=== PATIENT | female | born 1985 | race Caucasian/White ===

== ENCOUNTER 2021-04-27 00:52 | Emergency (ER) | payer MEDICAID, OTHER ==
[~2021-04-27] VITALS: Ht 160 cm; Wt 104.3 kg
[2021-04-27 01:01] VITALS: BP 149/97
[2021-04-27] MEDS ORDERED: IBUPROFEN 600 MG TABLET PO ONE (01:30)
[2021-04-27] MEDS ORDERED: IBUPROFEN 600 MG TABLET ONE (01:43)
[2021-04-27] MEDS ORDERED: HYDR-4303 PO (02:05)
[2021-04-27] MEDS ORDERED: IBUP-1955 PO (02:05)
--- NOTE | 2021-04-27 02:17 | NUR ---
EMT AT BED SIDE TO APPLY SPLINT
== END 2021-04-27 03:09 | disposition home or self-care (01) ==
LOC: ER 00:56
DX: S82.61XA Displaced fracture of lateral malleolus of right fibula, initial encounter for closed fracture (principal); R60.9 Edema, unspecified; J45.909 Unspecified asthma, uncomplicated; Z88.8 Allergy status to other drugs, medicaments and biological substances; V00.841A Fall from standing electric scooter, initial encounter; Y93.89 Activity, other specified; Y92.89 Other specified places as the place of occurrence of the external cause; Y99.8 Other external cause status
CPT/HCPCS: 73610-TC; 73630-TC

== ENCOUNTER 2021-10-06 19:23 | Emergency (ER) | payer MEDICAID, OTHER ==
[~2021-10-06] VITALS: Ht 160 cm; Wt 136.1 kg
[~2021-10-06 19:23] MED LIST: HYDR-4303 PO; IBUP-1955 PO
--- NOTE | 2021-10-06 21:08 | NUR ---
BIBSELF C/O LEFT ARM PAIN, WEAKNESS, BLE SWELLING, HEART Palpitations. AMBULATORY, PLACED ON BED, [id number].
--- NOTE | 2021-10-06 21:36 | NUR ---
20G IV LINE ESTABLSIHED AT [facility]. PATENT AND INTACT. UNABLE TO DRAW BLOOD FROM IV ASITE. LOGGING [employer]W SUPERVISOR AT BEDSIDE FOR BLOOD DRAW.
--- NOTE | 2021-10-06 21:43 | NUR ---
URINE COLLECTED AND SENT TO LAB
[2021-10-06 22:15] LABS: BASOPHILS % (AUTO) 0.5 % (0.0-2.0); EOSINOPHILS % (AUTO) 1.5 % (0.0-6.0); HEMATOCRIT 41 % (33-45); HEMOGLOBIN 13.5 g/dL (11.5-14.8); LYMPHOCYTES # (AUTO) 2.5 K/uL (0.8-4.8); LYMPHOCYTES % (AUTO) 24.5 % (20.0-44.0); MEAN CORPUSCULAR HGB CONC 33 g/dl (31.0-36.0); MEAN CORPUSCULAR VOLUME 87 fL (82-100); MONOCYTES # (AUTO) 0.4 K/uL (0.1-1.30); NEUTROPHILS # (AUTO) 7.1 K/uL (1.8-8.9); NEUTROPHILS % (AUTO) 69.5 % (43.0-81.0); PLATELET COUNT (AUTO) 234 K/uL (150-450); WHITE BLOOD COUNT (AUTO) 10.2 K/uL (4.3-11.0)
[2021-10-06 22:33] LABS: CARBON DIOXIDE 29 mmol/L (21-32); CHLORIDE 102 mmol/L (98-107); CREATININE 0.7 mg/dL (0.6-1.3); GLUCOSE 82 mg/dL (74-106); POTASSIUM 3.9 mmol/L (3.5-5.1); SODIUM SERUM 139 mmol/L (136-145); UREA NITROGEN, BLOOD 15 mg/dL (7-18)
[2021-10-06 22:38] LABS: ALANINE AMINOTRANSFERASE 24 U/L (12-78); ALBUMIN 3.4 g/dL (3.4-5.0); ALKALINE PHOSPHATASE 74 U/L (46-116); ASPARTATE AMINOTRANSFERASE 18 U/L (15-37); BILIRUBIN,TOTAL 0.1 mg/dL (0.2-1.0); TOTAL PROTEIN, SERUM 7.3 g/dL (6.4-8.2)
[2021-10-06 22:56] LABS: BILIRUBIN,URINE NEGATIVE (NEGATIVE); COLOR,URINE YELLOW (YELLOW); LEUKOCYTE ESTERASE ,URINE NEGATIVE (NEGATIVE); NITRITE, URINE NEGATIVE (NEGATIVE); PROTEIN,URINE NEGATIVE (NEGATIVE); UGLUCOSE NEGATIVE (NEGATIVE); UROBILINOGEN,URINE 0.2 EU/dL (0.2)
[2021-10-06] MEDS ORDERED: NITR100C PO (23:07)
--- NOTE | 2021-10-07 01:23 | NUR ---
Patient discharged to home in stable condition. Written and verbal after care instructions given. Patient verbalizes understanding of instruction. IV line removed and PT ambulatory with steady gait.
[2021-10-07 02:05] VITALS: BP 159/90
== END 2021-10-07 01:23 | disposition home or self-care (01) ==
LOC: ER 19:27
DX: R53.1 Weakness (principal); E66.01 Morbid (severe) obesity due to excess calories; Z68.43 Body mass index [BMI] 50.0-59.9, adult; R60.0 Localized edema; N39.0 Urinary tract infection, site not specified; Z72.0 Tobacco use; I87.2 Venous insufficiency (chronic) (peripheral); R00.2 Palpitations; Z20.822 Contact with and (suspected) exposure to COVID-19; F15.90 Other stimulant use, unspecified, uncomplicated; J45.909 Unspecified asthma, uncomplicated; F17.210 Nicotine dependence, cigarettes, uncomplicated; R03.0 Elevated blood-pressure reading, without diagnosis of hypertension; M79.602 Pain in left arm
CPT/HCPCS: 36415 ×2; 71045; 80048; 80076; 81003; 83880; 84484 ×2; 84703; 85025; 87426; 93005; 99285; 99406; C9803

== ENCOUNTER 2024-05-28 13:25 | Emergency (ER) | payer BC, MEDICAID, OTHER ==
[~2024-05-28] VITALS: Ht 175.3 cm; Wt 130.6 kg
[~2024-05-28 13:25] MED LIST changes: +NITR100C PO
[2024-05-28] MEDS ORDERED: MAG HYDROX/AL HYDROX/SIMETH 30 ML UDC ONE (14:54)
[2024-05-28] MEDS ORDERED: ACETAMINOPHEN ES 500 MG TABLET ONE (14:54)
[2024-05-28 14:55] LABS: BASOPHILS % (AUTO) 0.1 % (0.0-2.0); EOSINOPHILS % (AUTO) 0.4 % (0.0-6.0); HEMATOCRIT 42 % (33-45); HEMOGLOBIN 14.1 g/dL (11.5-14.8); LYMPHOCYTES # (AUTO) 0.4 K/uL (0.8-4.8); LYMPHOCYTES % (AUTO) 3.5 % (20.0-44.0); MEAN CORPUSCULAR HEMOGLOBIN 30 PG (26.0-33.0); MEAN CORPUSCULAR HGB CONC 33 g/dl (31.0-36.0); MEAN CORPUSCULAR VOLUME 89 fL (82-100); MONOCYTES # (AUTO) 0.2 K/uL (0.1-1.30); MONOCYTES % (AUTO) 2.2 % (2.0-12.0); NEUTROPHILS # (AUTO) 9.8 K/uL (1.8-8.9); NEUTROPHILS % (AUTO) 93.8 % (43.0-81.0); PLATELET COUNT (AUTO) 241 K/uL (150-450); RED BLOOD CELL COUNT(AUTO) 4.75 MIL/uL (4.0-5.2); RED CELL DISTRIBUTION WIDTH 15.2 % (11.5-15.0); WHITE BLOOD COUNT (AUTO) 10.5 K/uL (4.3-11.0)
[2024-05-28] MEDS ORDERED: ONDANSETRON 4 MG TAB.RAPDIS ONE (14:55)
[2024-05-28] MEDS ORDERED: FAMOTIDINE (20 MG) 20 MG TABLET ONE (14:55)
[2024-05-28] MEDS: FAMOTIDINE (20 MG) 20 MG TABLET PO ONE (14:56)
[2024-05-28] MEDS: MAG HYDROX/AL HYDROX/SIMETH 30 ML UDC PO ONE (14:56)
[2024-05-28] MEDS: ACETAMINOPHEN ES 500 MG TABLET PO ONE (14:57)
[2024-05-28] MEDS: ONDANSETRON 4 MG TAB.RAPDIS PO ONE (14:58)
[2024-05-28 15:06] LABS: CALCIUM, SERUM 8.4 mg/dL (8.5-10.1); POTASSIUM 4.2 mmol/L (3.5-5.1)
[2024-05-28 15:12] LABS: ALBUMIN 3.7 g/dL (3.4-5.0); BILIRUBIN,DIRECT 0.1 mg/dL (0.0-0.2); BILIRUBIN,TOTAL 0.4 mg/dL (0.2-1.0); TOTAL PROTEIN, SERUM 7.8 g/dL (6.4-8.2)
[2024-05-28] MEDS: IV NS 0.9% 1,000 ML BAG IV ONE (16:12)
[2024-05-28 17:00] LABS: APPEARANCE,URINE Clear (CLEAR); BILIRUBIN,URINE Negative (NEGATIVE); BLOOD, URINE Negative Ery/uL (NEGATIVE); COLOR,URINE YELLOW (YELLOW); KETONES,URINE Negative (NEGATIVE); LEUKOCYTE ESTERASE ,URINE Negative (NEGATIVE); NITRITE, URINE Negative (NEGATIVE); PROTEIN,URINE Negative (NEGATIVE); UGLUCOSE Negative (NEGATIVE)
[2024-05-28 17:01] LABS: PREGNANCY TEST URINE QUAL NEGATIVE (NEGATIVE)
[2024-05-28 17:02] LABS: ADD URINE CULTURE NO; BACTERIA,URINE Few /HPF (None Seen); RBC,URINE 0-2 /HPF (0-2); SQUAMOUS EPITHELIAL CELL,UR Few /HPF (None Seen); WBC,URINE 0-2 /HPF (0-3)
[2024-05-28] MEDS ORDERED: ONDA4TAB5 PO (17:10)
[2024-05-28] MEDS ORDERED: FAMO20TA80 PO (17:11)
[2024-05-28] MEDS ORDERED: ACET325C7 PO (17:11)
[2024-05-28 18:09] VITALS: BP 148/78; TEMP 98.2; O2SAT 100
== END 2024-05-28 18:09 | disposition home or self-care (01) ==
LOC: ER 13:41
DX: A05.9 Bacterial foodborne intoxication, unspecified (principal); F17.200 Nicotine dependence, unspecified, uncomplicated; J45.909 Unspecified asthma, uncomplicated; R10.10 Upper abdominal pain, unspecified; R11.2 Nausea with vomiting, unspecified; R19.7 Diarrhea, unspecified
CPT/HCPCS: 99285; 96360; 85025; 80048; 83690; 80076; 84703; 81001; 36415; J7030; Q0162